=== PATIENT | male | born 1980 | race African-American/Black ===

== ENCOUNTER 2017-02-05 11:12 | Emergency (ER) | payer SELFPAY ==
[~2017-02-05] VITALS: Ht 182.9 cm; Wt 74.3 kg
[2017-02-05] MEDS ORDERED: PEN-VEE K,VEET500 MG PO (11:30)
[2017-02-05] MEDS ORDERED: NAPROSYN500 MG PO (11:30)
[2017-02-05] MEDS ORDERED: PERIDEX473 ML MM (11:37)
[2017-02-05 11:59] VITALS: BP 133/92
== END 2017-02-05 12:01 | disposition home or self-care (01) ==
LOC: EME 11:12
DX: K04.7 Periapical abscess without sinus (principal); F17.200 Nicotine dependence, unspecified, uncomplicated
CPT/HCPCS: 99281; 99283

== ENCOUNTER 2017-08-11 12:41 | Emergency (ER) | payer SELFPAY ==
[~2017-08-11] VITALS: Ht 180.3 cm; Wt 81.2 kg
[~2017-08-11 12:41] MED LIST: NAPROSYN500 MG PO; PEN-VEE K,VEET500 MG PO; PERIDEX473 ML MM
[2017-08-11] MEDS ORDERED: TRAMADOL HCL50 MG PO (15:22)
[2017-08-11] MEDS ORDERED: PEN-VEE K,VEET500 MG PO (15:22)
[2017-08-11 15:38] VITALS: BP 119/72
== END 2017-08-11 15:39 | disposition home or self-care (01) ==
LOC: EME 12:41
DX: K08.89 Other specified disorders of teeth and supporting structures (principal); F17.200 Nicotine dependence, unspecified, uncomplicated
CPT/HCPCS: 99281; 99284

== ENCOUNTER 2017-09-03 22:23 | Emergency (ER) | payer SELFPAY ==
[~2017-09-03] VITALS: Ht 182.9 cm; Wt 78.3 kg
[~2017-09-03 22:23] MED LIST changes: +TRAMADOL HCL50 MG PO
[2017-09-03] MEDS ORDERED: ULTRACET1 TABLET PO (23:42)
[2017-09-03] MEDS ORDERED: MOTRIN800 MG PO (23:42)
[2017-09-03 23:55] VITALS: BP 146/88
== END 2017-09-03 23:56 | disposition home or self-care (01) ==
LOC: EME 22:23
DX: S80.02XA Contusion of left knee, initial encounter (principal); W22.8XXA Striking against or struck by other objects, initial encounter; F17.200 Nicotine dependence, unspecified, uncomplicated
CPT/HCPCS: 73564; 99281; 99284

== ENCOUNTER 2017-10-21 08:45 | Emergency (ER) | payer SELFPAY ==
[~2017-10-21] VITALS: Ht 182.9 cm; Wt 78.7 kg
[~2017-10-21 08:45] MED LIST changes: +MOTRIN800 MG PO; +ULTRACET1 TABLET PO
[2017-10-21] MEDS ORDERED: NORCO 5/3251 TABLET PO (09:34)
[2017-10-21 10:03] VITALS: BP 140/88
== END 2017-10-21 10:28 | disposition home or self-care (01) ==
LOC: EME 08:45
DX: K02.9 Dental caries, unspecified (principal)
CPT/HCPCS: 99281; 99284

== ENCOUNTER 2018-01-27 07:38 | Emergency (ER) | payer SELFPAY ==
[~2018-01-27] VITALS: Ht 182.9 cm; Wt 77.4 kg
[~2018-01-27 07:38] MED LIST changes: +NORCO 5/3251 TABLET PO
[2018-01-27] MEDS ORDERED: MOTRIN800 MG PO (08:49)
[2018-01-27 09:04] VITALS: BP 148/102
== END 2018-01-27 09:11 | disposition home or self-care (01) ==
LOC: EME 07:38
DX: R07.89 Other chest pain (principal); F17.200 Nicotine dependence, unspecified, uncomplicated
CPT/HCPCS: 71046; 99281; 99284

== ENCOUNTER 2018-02-11 16:12 | Emergency (ER) | payer SELFPAY ==
[~2018-02-11] VITALS: Ht 182.9 cm; Wt 75.1 kg
[2018-02-11 18:02] LABS: HEMATOCRIT 38.3 % (38.0-50.0); HEMOGLOBIN 12.8 G/DL (12.5-16.6); MCHC 33.4 G/DL (30.0-36.0); MCV 86.8 FL (86-99); PLATELET COUNT 253 K/uL (156-360); RBC DIS.WIDTH-CV 13.6 % (11.8-14.6); RBC DIS.WIDTH-SD 42.9 % (39-53); RED BLOOD COUNT 4.41 M/uL (4.00-5.50); WHITE BLOOD COUNT 6.9 K/uL (4.1-10.2)
[2018-02-11 18:09] LABS: D-DIMER ELISA < 150.00 ng/mLDDU (<230)
[2018-02-11 18:12] LABS: CHLORIDE 109 mEq/L (99-109); POTASSIUM 4.1 mEq/L (3.7-5.4); SODIUM 142 mEq/L (136-147)
[2018-02-11 18:20] LABS: GLUCOSE 90 mg/dL (70-99)
[2018-02-11 18:24] LABS: CREATININE 1.4 mg/dL (0.6-1.3); GFR ESTIMATE (CALCULATED) > 59 mL/min/ (58.99-99999)
[2018-02-11 18:25] LABS: TROP-I INTERPRETATION NEGATIVE; TROPONIN-I < 0.01 ng/mL (0.0-0.30); UREA NITROGEN (BUN) 16 mg/dL (9-23)
[2018-02-11] MEDS ORDERED: ULTRAM50 MG PO (19:36)
[2018-02-11 19:59] VITALS: BP 159/85
== END 2018-02-11 20:00 | disposition home or self-care (01) ==
LOC: EME 16:12
PROVIDERS: Physician Assistant Medical
DX: S22.31XA Fracture of one rib, right side, initial encounter for closed fracture (principal); W17.4XXA Fall from dock, initial encounter; F17.200 Nicotine dependence, unspecified, uncomplicated
CPT/HCPCS: 71101; 71250; 80048; 84484; 85027; 85379; 93005; 99281; 99283